=== PATIENT | female | born 2000 | race African-American/Black ===

== ENCOUNTER 2021-10-09 09:50 | Emergency (ER) | payer BC, MEDICAID, OTHER ==
[~2021-10-09] VITALS: Ht 170.2 cm; Wt 168.0 kg
[2021-10-09] MEDS ORDERED: DEXAMETHASONE 10 MG/ML VIAL IV ONE (10:15)
[2021-10-09] MEDS ORDERED: KETOROLAC 15MG/ML VIAL IV ONE (10:15)
[2021-10-09] MEDS ORDERED: AMOXICILLIN/POTASSIUM CLAVULANATE 875/125MG TAB PO ONE (10:15)
[2021-10-09] MEDS ORDERED: VISCOUS LIDOCAINE 2% 15 ML UDC MM PRN (10:30)
[2021-10-09 11:21] LABS: BASOPHILS % 0.9 % (0.0-2.0); EOSINOPHILS % 8.4 % (0.0-5.0); HEMATOCRIT. 36.9 % (36.0-48.0); HEMOGLOBIN. 12.2 g/dL (12.0-16.0); LYMPHOCYTES % 26.7 % (20.0-50.0); MEAN CORPUSCULAR HEMOGLOBIN 26.3 pg (28.0-32.0); MEAN CORPUSCULAR VOLUME 79.8 fL (81.0-99.0); MEAN PLATELET VOLUME 7.7 fl (7.4-10.4); MONOCYTES % 7.9 % (2.0-8.0); NEUTROPHILS % 56.1 % (40.0-76.0); PLATELET 335 x1000/uL (130-400); RED BLOOD CELL COUNT 4.63 mill/uL (4.2-5.4)
[2021-10-09 11:27] LABS: CHLORIDE 105 mEq/L (98-107)
[2021-10-09 11:28] LABS: CLARITY URINE CLEAR (CLEAR); COLOR URINE YELLOW (YELLOW); KETONES URINE NEGATIVE (NEGATIVE); LEUKOCYTE ESTERASE URINE NEGATIVE (NEGATIVE); NITRITE URINE NEGATIVE (NEGATIVE); OCCULT BLOOD URINE NEGATIVE (NEGATIVE); PROTEIN URINE NEGATIVE (NEGATIVE); SPECIFIC GRAVITY URINE 1.018 (1.005-1.030)
[2021-10-09 12:00] LABS: HCG SCREEN NEGATIVE
[2021-10-09] MEDS ORDERED: IOHEXOL-300 100 ML BOTTLE ONE ×2 (13:33→14:21)
[2021-10-09] MEDS ORDERED: IBUP-2029 MT (14:33)
[2021-10-09] MEDS ORDERED: AMOX-424 MT (14:33)
[2021-10-09 14:50] VITALS: BP 161/93
== END 2021-10-09 14:50 | disposition home or self-care (01) ==
LOC: ER 09:50
DX: J03.90 Acute tonsillitis, unspecified (principal)
CPT/HCPCS: 36415; 70491; 80053; 81003; 81025; 83605; 84703; 85025; 87070; 87430; 96374; 96375; 99285; J1100; J1885; Q9967